=== PATIENT | male | born 1995 | race Caucasian/White ===

== ENCOUNTER 2016-11-01 07:55 | Day surgery (SDC) | payer OTHER ==
[2016-10-25 09:23] LABS: APPEARANCE,URINE CLEAR; BILIRUBIN,URINE NEGATIVE (NEGATIVE); GLUCOSE, URINE NEGATIVE (NEGATIVE); KETONES,URINE NEGATIVE (NEGATIVE); LEUKOCYTE ESTERASE,URINE NEGATIVE (NEGATIVE); NITRITE,URINE NEGATIVE (NEGATIVE); PROTEIN,URINE NEGATIVE (NEGATIVE); URINE SPECIFIC GRAVITY 1.006; UROBILINOGEN,URINE NEGATIVE mg/dL (<2.0)
[2016-10-25 09:24] LABS: ABSOLUTE BASOPHILS # (AUTO) 0.1 10^3/uL (0.0-0.2); ABSOLUTE EOSINOPHILS # (AUTO) 0.5 10^3/uL (0.0-0.6); ABSOLUTE LYMPHOCYTES (AUTO) 1.2 10^3/uL (0.5-4.7); ABSOLUTE MONOCYTES (AUTO) 0.7 10^3/uL (0.1-1.4); ABSOLUTE NEUT (AUTO) 5.2 10^3/uL (1.7-8.2); BASOPHILS % (AUTO) 0.7 % (0-2); EOSINOPHILS % (AUTO) 6.4 % (0-6); HEMATOCRIT 44.8 % (37.9-51.0); HEMOGLOBIN 15.5 g/dL (13.5-17.0); HGB HCT DIFFERENCE 1.7; LYMPHOCYTES % (AUTO) 15.8 % (13-45); MEAN CORPUSCULAR HEMOGLOBIN 30.3 pg (27.0-33.4); MEAN CORPUSCULAR HGB CONC 34.5 g/dL (32.0-36.0); MEAN CORPUSCULAR VOLUME 88 fl (80-97); MONOCYTES % (AUTO) 8.8 % (3-13); RED CELL DISTRIBUTION WIDTH 13.1 % (11.5-14.0); SEGMENTED NEUTROPHILS % (AUTO) 68.3 % (42-78); WHITE BLOOD COUNT 7.6 10^3/uL (4.0-10.5)
[2016-10-25 09:51] LABS: ANION GAP 10 (5-19); BLOOD UREA NITROGEN 17 mg/dL (7-20); CALCIUM 9.9 mg/dL (8.4-10.2); CARBON DIOXIDE 27 mmol/L (22-30); CHLORIDE 104 mmol/L (98-107); CREATININE RESULT 0.87 mg/dL (0.52-1.25); GLUCOSE 100 mg/dL (75-110); POTASSIUM 4.4 mmol/L (3.6-5.0); SODIUM 141.1 mmol/L (137-145)
--- NOTE | 2016-10-25 17:07 | EKG REPORT ---
SEVERITY:- OTHERWISE NORMAL ECG - SINUS ARRHYTHMIA, RATE [id number] : Confirmed by: Irene Flanagan 25-Oct-2016 17:06:07
[~2016-11-01 07:55] MED LIST: CEFAZOLIN 2 GM/D5W RTU 2 GM/50 ML RTUPB IV PRN; LACTATED RINGERS 1000 ML IV PRN; LIDOCAINE 0.5% INJ-PF (5 MG/ML) 50 ML SDV SUBCUT PRN
[2016-11-01] MEDS ORDERED: FENTANYL CITRATE INJ/PF 100 MCG/2 ML AMPUL ONE (09:52)
[2016-11-01] MEDS ORDERED: PROPOFOL INJ 200 MG/20 ML VIAL IV ONE (09:52)
[2016-11-01] MEDS ORDERED: MIDAZOLAM 2 MG/2 ML INJ ONE (09:52)
[2016-11-01] MEDS ORDERED: LIDOCAINE 1% INJ-PF (10 MG/ML) 30 ML SDV ONE (10:13)
[2016-11-01] MEDS ORDERED: BUPIVACAINE HCL 0.25 % INJ/PF (2.5 MG/1 ML) 30 ML VIAL ONE (10:13)
[2016-11-01] MEDS ORDERED: ONDANSETRON HCL INJ/PF 4 MG/2 ML SDV IV PRN ×2 (10:31→11:22)
[2016-11-01] MEDS ORDERED: FENTANYL CITRATE INJ/PF 100 MCG/2 ML AMPUL IV PRN ×3 (10:31)
[2016-11-01] MEDS ORDERED: OXYCODONE-ACETAMINOPHEN 5-325 MG TABLET PO PRN (11:22)
[2016-11-01] MEDS ORDERED: MORPHINE SULFATE 10 MG/ML INJ IV PRN (11:22)
--- NOTE | 2016-11-01 11:31 | Operative Report ---
Operative Report DATE OF SURGERY: 11/01/16 PREOPERATIVE DIAGNOSIS: Right SF PIP Flexion Contracture, Retained Hardware Proximal Phalanx POSTOPERATIVE DIAGNOSIS: Same OPERATION: Removal Hardware Right Small Finger Proximal Phalanx, PIP Capsulotomy w/ Contracture Release, Extensor Tenolysis SURGEON: SEBASTIEN CONNORS ANESTHESIA: LMAC COMPLICATIONS: None ESTIMATED BLOOD LOSS: Minimal PROCEDURE: Indication for above procedure: 21-year-old male who sustained a proximal phalanx fracture of his right small finger. He underwent open reduction internal fixation. He subsequently developed a PIP joint flexion contracture and was sent to me for further evaluation and treatment. At that point we discussed treatment options x-rays demonstrate complete healing of his fracture thus I thought it was reasonable to proceed with hardware removal and contracture release. Risks and benefits were explained to the patient who verbalized understanding consented for the procedure. Procedure In Detail: Patient was seen and evaluated in the preoperative holding area. The RIGHT upper extremity was initialized and marked. Patient received 2g of Ancef IV for bacterial prophylaxis. Patient was taken back to the operative room where transferred to the operative table and placed under MAC anesthesia. Once they were adequately anesthetized a nonsterile tourniquet was placed on the upper extremity. A surgical team debriefing was performed ensuring all instrumentation was available, the surgical procedure was discussed with possible concerns reviewed. Digital block was performed utilizing 10 mL of 50: 50 mixture of 0.25% Marcaine and 1% lidocaine without epinephrine. The upper extremity was prepped with chlorhexidine and alcohol and draped in a sterile fashion. A timeout was done identifying correct patient, procedure and extremity everyone in attendance agree with this and verbalized no concerns. The extremity was exsanguinated the tourniquet was inflated to 250 mmHg. Patient's previous midlateral skin incision along the ulnar border of the small finger proximal phalanx was utilized. Blunt dissection was performed. The conjoined lateral band was identified and elevated and the underlying plate was visualized. The 4 screws within the proximal phalanx were removed in their entirety and the plate was removed without complication. The bone holes were carefully curetted. C-arm was obtained confirming complete hardware removal and fracture healing. Wound was irrigated with normal saline I then proceeded with contracture release. Skin incision was extended distally along the mid lateral crease. Blunt dissection was performed the neurovascular bundle was identified. I then released the volar plate along the PIP joint along with the accessory collateral ligament once release was complete gentle extension was performed and I was able achieve full passive extension of the small finger. I then bluntly dissected between the extensor mechanism and skin flap. The interval between the extensor tendon and underlying periosteum was approached with the use of the tenolysis knife and extensor tenolysis was performed. Tourniquet was then deflated. Any peripheral vasculature was carefully coagulated with bipolar cautery. Until the wound was dry. Patient was then awoken from anesthesia he was able to make a full composite fist he also had less than 5 residual extensor lag of the PIP joint. Skin incision was closed with interrupted 4-0 nylon suture. An additional 10 mL of bupivacaine were injected for postoperative pain control. Patient had good peripheral perfusion normal capillary refill. Wound was dressed with Xeroform cast padding and patient was placed in a PIP joint extension splint with plaster material. Sponge counts, instrument counts, needle counts counts were correct. Patient was then awoken from anesthesia. Transferred from the operating room table to the operating room stretcher. There was no intraoperative complications patient tolerated procedure well stable to PACU. Postoperative plan: Patient will follow-up in the office and 10-14 days for suture removal. Patient will begin occupational therapy within 24 hours of the surgical procedure to begin PIP joint range of motion.
--- NOTE | 2016-11-01 11:36 | PDOC DISCHARGE SUMMARY ---
Discharge Summary (SDC) - Discharge Final Diagnosis: Right Small Finger Contracture w/ Retained Hardware Date of Surgery: 11/01/16 Discharge Date: 11/01/16 Condition: Good Treatment or Instructions: Schedule Follow Up w/ Dr. Lambert Whitney @ [facility] to be seen in 10-14 days or as scheduled [place]: [place]: [place]: May remove dressing at OT follow up appointment Begin OT on POD#1 Ice and elevate Stool softener of choice when on pain medication. Prescriptions: Oxycodone HCl/Acetaminophen [Percocet 5-325 mg Tablet] 1 - 2 tab PO ASDIR PRN # 45 tablet PRN Reason: Discharge Diet: As Tolerated Respiratory Treatments at Home: Deep Breathing/Coughing Discharge Activity: No Lifting Over 10 Pounds, No Lifting/Push/Pulling Report the Following to Your Physician Immediately: Fever over 101 Degrees, Unusual Bleeding, Redness, Swelling, Warmth, Numbness, Tingling Sensation
[2016-11-01 14:32] VITALS: BP 129/71
== END 2016-11-01 13:15 | disposition home or self-care (01) ==
LOC: OROUT 07:55
PROVIDERS: ATTEND Orthopaedic Surgery
PROC: 0PPT04Z Removal of Internal Fixation Device from Right Finger Phalanx, Open Approach (ICD-10-PCS; 2016-11-01)
PROC: 0LN70ZZ Release Right Hand Tendon, Open Approach (ICD-10-PCS; 2016-11-01)
PROC: 0RNW0ZZ Release Right Finger Phalangeal Joint, Open Approach (ICD-10-PCS; principal; 2016-11-01 10:00)
DX: M24.541 Contracture, right hand (principal); S62.616D Displaced fracture of proximal phalanx of right little finger, subsequent encounter for fracture with routine healing; X58.XXXD Exposure to other specified factors, subsequent encounter; M79.644 Pain in right finger(s)
CPT/HCPCS: 93005; 36415; 85025; 80048; 81001; 73140; 93010; 26525; 20680; 26445; J2250; J3010; J3490; J2704; J0690; 01830